=== PATIENT | male | born 1965 | race Caucasian/White ===

== ENCOUNTER 2021-10-18 15:57 | Inpatient (IN) | payer OTHER ==
[~2021-10-18] VITALS: Ht 175.3 cm; Wt 84.8 kg
[2021-10-18 16:01] VITALS: BP 178/112
--- NOTE | 2021-10-18 16:11 | NUR ---
Antelmo bernal in [facility] - 10/18/21 at 1612 by [email or web address] PT AMB TO BED 8.
--- NOTE | 2021-10-18 16:12 | NUR ---
PT AMB TO BED 10.
[2021-10-18] MEDS ORDERED: DICYCLOMINE HCL LIQUID 20 MG, ALUMINUM HYD/MAG/SIMETHICONE 30 ML, LIDOCAINE VISCOUS 2% ... PO ONE ×3 (16:40)
--- NOTE | 2021-10-18 16:45 | NUR ---
55 Y/O MALE BIB SELF C/O INTERMITTENT MID STERNAL "BURNING" CHEST PAIN RATED 5/10. PT STATES THE PAIN IMPROVED AFTER DRINKING WATER. PT DENIES FEVER OR CHILLS. LUNGS CTA. BED LOCKED IN LOWEST POSITION. PT PLACE ON MONITOR. PMH:DENIES MEDS: DENIES
[2021-10-18 17:07] LABS: BASOPHILS % (AUTO) 0.3 % (0.0-2.0); EOSINOPHILS # (AUTO) 0.1 K/uL (0-0.4); EOSINOPHILS % (AUTO) 1.1 % (0.0-4.0); HEMATOCRIT 35.9 % (36-52); HEMOGLOBIN 11.1 g/dL (12.0-18.0); LYMPHOCYTES % (AUTO) 8.6 % (20.5-51.1); MEAN CORPUSCULAR HEMOGLOBIN 22 pg (27-31); MEAN CORPUSCULAR HGB CONC 31 g/dL (33-37); MEAN CORPUSCULAR VOLUME 71.9 fL (80-94); MONOCYTES # (AUTO) 0.6 K/uL (0.8-1.0); MONOCYTES % (AUTO) 5.4 % (1.7-9.3); NEUTROPHILS # (AUTO) 10.1 K/uL (1.8-7.7); NEUTROPHILS % (AUTO) 84.6 % (42.2-75.2); PLATELET COUNT (AUTO) 345 K/uL (140-450); RED BLOOD CELL COUNT(AUTO) 4.99 MIL/uL (4.20-6.10); RED CELL DISTRIBUTION WIDTH 17.7 % (11.6-13.7)
[2021-10-18] MEDS ORDERED: ALUMINUM HYD/MAG/SIMETHICONE 30 ML UDC ONE (17:29)
[2021-10-18] MEDS ORDERED: DICYCLOMINE HCL LIQUID 10 MG/5 ML UDC ONE (17:29)
[2021-10-18 17:32] LABS: ALBUMIN 3.9 g/dL (3.4-5.0); ANION GAP 11.9 (8-16); ASPARTATE AMINOTRANSFERASE 144 U/L (15-37); CARBON DIOXIDE 24.9 mmol/L (21-32); CHLORIDE 100 mmol/L (98-107); CREATININE 0.7 mg/dL (0.6-1.3); GFR ARICAN-AMERICAN 149 mL/min (>90); GLUCOSE 106 mg/dL (74-106); POTASSIUM 3.8 mmol/L (3.5-5.1); SODIUM SERUM 133 mmol/L (136-145); TOTAL BILIRUBIN 0.2 mg/dL (0.0-1.0); UREA NITROGEN, BLOOD 13 mg/dL (7-18)
[2021-10-18] MEDS ORDERED: NITROGLYCERIN 0.4 MG TAB SL ONE (17:45)
[2021-10-18] MEDS ORDERED: ASPIRIN 325 MG TAB PO ONE (17:45)
[2021-10-18] MEDS ORDERED: CLOPIDOGREL 75 MG TAB PO ONE (17:45)
[2021-10-18] MEDS ORDERED: LOVENOX 1MG/KG Q12H SUBQ SCH (17:55)
--- NOTE | 2021-10-18 19:02 | NUR ---
MARCI LAMBERT WALKED TO LAB
--- NOTE | 2021-10-18 19:20 | NUR ---
Pt report given to AKILAH LENNON. Transfer of care at this time.
[2021-10-18] MEDS ORDERED: MAGNESIUM OXIDE 400 MG TAB PO PRN (21:05)
[2021-10-18] MEDS ORDERED: MORPHINE SULFATE 4 MG/ML SYR IVP PRN (21:05)
[2021-10-18] MEDS ORDERED: NITROGLYCERIN 0.4 MG TAB SL PRN (21:05)
[2021-10-18] MEDS ORDERED: KCL 20 MEQ/WATER INJ PREMIX 200 ML IV PRN (21:05)
[2021-10-18] MEDS ORDERED: ACETAMINOPHEN 325 MG TAB PO PRN (21:05)
[2021-10-18] MEDS ORDERED: ONDANSETRON 4 MG/2 ML VIAL IVP PRN (21:05)
[2021-10-18] MEDS ORDERED: POTASSIUM CHLORIDE 10 MEQ TABER PO PRN (21:05)
[2021-10-18] MEDS ORDERED: MAG SULF 2000 MG/WATER PREMIX 50 ML IV PRN (21:05)
--- NOTE | 2021-10-18 21:48 | NUR ---
Patient will be admitted to care of DR RODRIGUEZ. Admited to TELE. Will go to room 106B. Belongings list completed. Report to AKILAH LOUIS.
--- NOTE | 2021-10-18 21:50 | NUR ---
PATIENT WAS BROUGHT TO [facility] UNIT FROM ER VIA [place] AA[facility], AMBULATORY ON ROOM AIR. NO ACUTE DISTRESS NOTED. SKIN INTACT NO WOUND. ORIENTED TO ROOM, CALL LIGHT, STAFF. ALL SAFETY PRECAUTIONS ARE IN PLACE. MRSA SCREENING DONE. CALL LIGHT WITHIN REACH. WILL CONTINUE TO MONITOR PT.
--- NOTE | 2021-10-18 22:22 | NUR ---
BP-165/105 P-[address] RODRIGUEZ AWAITING FOR REPLY.
[2021-10-18] MEDS: HYDROcodone/APAP 5/325 MG 1 TAB TAB PO PRN (22:37)
--- NOTE | 2021-10-18 22:37 | NUR ---
PATIENT COMPLAINED OF MODERATE CHEST PAIN 4/10, MEDICATED.
[2021-10-19] VITALS: BP 168/110
[2021-10-19] MEDS ORDERED: ENOXAPARIN 80 MG/0.8 ML SYR SUBQ SCH (00:05)
[2021-10-19] MEDS ORDERED: METOPROLOL 50 MG TAB ONE (00:10)
[2021-10-19] MEDS ORDERED: SIMVASTATIN 20 MG TAB ONE (00:10)
[2021-10-19] MEDS ORDERED: CLONIDINE HYDROCHLORIDE 0.1 MG TAB PO PRN (00:20)
--- NOTE | 2021-10-19 02:25 | NUR ---
CHECKED PATIENT, RESTING COMFORTABLY IN BED. NO ACUTE DISTRESS. RESPIRATION EVEN UNLABORED. CALL LIGHT WITHIN REACH.
[2021-10-19 04:00] VITALS: BP 148/100
[2021-10-19 06:09] LABS: BASOPHILS % (AUTO) 0.3 % (0.0-2.0); EOSINOPHILS # (AUTO) 0.2 K/uL (0-0.4); EOSINOPHILS % (AUTO) 1.7 % (0.0-4.0); HEMATOCRIT 33.7 % (36-52); HEMOGLOBIN 10.7 g/dL (12.0-18.0); LYMPHOCYTES # (AUTO) 1.1 K/uL (2.0-11.5); LYMPHOCYTES % (AUTO) 9.6 % (20.5-51.1); MEAN CORPUSCULAR HEMOGLOBIN 22 pg (27-31); MEAN CORPUSCULAR HGB CONC 32 g/dL (33-37); MEAN CORPUSCULAR VOLUME 70.8 fL (80-94); MONOCYTES # (AUTO) 0.9 K/uL (0.8-1.0); MONOCYTES % (AUTO) 8.1 % (1.7-9.3); NEUTROPHILS # (AUTO) 9.1 K/uL (1.8-7.7); NEUTROPHILS % (AUTO) 80.3 % (42.2-75.2); PLATELET COUNT (AUTO) 328 K/uL (140-450); RED BLOOD CELL COUNT(AUTO) 4.76 MIL/uL (4.20-6.10); RED CELL DISTRIBUTION WIDTH 17.4 % (11.6-13.7); WHITE BLOOD COUNT (AUTO) 11.3 K/uL (4.8-10.8)
[2021-10-19 06:43] LABS: ALBUMIN 3.6 g/dL (3.4-5.0); ANION GAP 11.8 (8-16); CREATININE 0.7 mg/dL (0.6-1.3); POTASSIUM 3.8 mmol/L (3.5-5.1); TOTAL BILIRUBIN 0.5 mg/dL (0.0-1.0)
--- NOTE | 2021-10-19 07:26 | NUR ---
ENDORSED PATIENT TO AM NURSE FOR CONTINUITY OF CARE. PT IS STABLE.
[2021-10-19 08:00] VITALS: BP 148/101
--- NOTE | 2021-10-19 08:11 | NUR ---
RECEIVE ENDORSEMENT FROM PM SHIFT NURSE WHILE PATIENT IS REST IN BED, PIV LAC 20G SALINE LOCK. PATIENT HAS NSTEMI RECENTLY
--- NOTE | 2021-10-19 08:32 | NUR ---
PATIENT HAS BEEN SCREENED AND CATEGORIZED LOW NUTRITION RISK. PATIENT WILL BE SEEN WITHIN 7 DAYS OF ADMISSION. 10/25/[address]
[2021-10-19] MEDS ORDERED: METOPROLOL 50 MG TAB PO SCH (09:00)
[2021-10-19] MEDS ORDERED: LOVENOX 1MG/KG Q12H SUBQ SCH (09:00)
[2021-10-19] MEDS: ATORVASTATIN 80 MG TAB PO SCH (10:01)
[2021-10-19] MEDS: DOCUSATE SODIUM 100 MG GELCAP PO SCH (10:01)
[2021-10-19] MEDS: ENOXAPARIN 80 MG/0.8 ML SYR SUBQ SCH ×2 (10:04→20:50)
--- NOTE | 2021-10-19 10:56 | NUR ---
RECEIVE CALL FROM ALISON ([phone]) REGARDING TO PATIENT'S DISCHARGE PLAN. WILL F/U Addendum: 10/19/21 at 1614 by Charlene Mendez RN KSENIA DODSON INFORM NURSE THAT PATIENT NEED TO BE NPO FROM 10/20/2021 TO 10/21/2021 NIGHT. WOMEN'S BASKETBALL COACH SCHEDULE IN SUNDAY (10/21/2021), AND INSPECTION MANAGER TIME IS 0900. WILL CONTINUE TO MONITOR.
--- NOTE | 2021-10-19 11:32 | NUR ---
DC PLANNIN YRS OLD FEMALE PATIENT WAS ADMITTED FROM HOME WITH A DX OF NSTEMI. PATIENT HAS NO MEDICAL HISTORY. CXR NORMAL. RAPID COVID TEST NEGATIVE. ADMINISTERED HOME MEDS. CONSULTED WITH CARDIO DR NICK. DC PLAN TO GO HOME WHEN STABLE. CM TO FOLLOW Addendum: 10/19/21 at 1453 by Elda Strickland RN DC PLANNING: DR NICK BASKET FILLER ORDERED PATIENT NEEDS CARDIAC CATH, NEEDS TO BE TRANSFERRED TO HIGHER LEVEL OF CARE. CALLED [facility] [phone] SPOKE WITH CM NAME JAGDEEP STATED SINCE HE IS IN OUT OF AREA THE HEALTH PLAN IS THE ONE WHO IS RESPONSIBLE. CALLED [facility] [phone] SPOKE WITH TRACY UPDATED ALL CLINICALS REF # [id number] PER TRACY WILL SUBMIT TO THE WOOD CAULKER AND ONCE SHE REVIEW IT WILL CALL BACK. FAXED THE URGENT REQUEST TO [phone]. CALLED [facility] C[facility]OM[facility] EXPERIENCE SPECIALIST SPOKE WITH RAFA SHETTY ONCE SHE ARRANGE WILL CALL BACK CM. CM TO FOLLOW Addendum: 10/19/21 at 1558 by Elda Strickland RN DC PLANNING: PER DR NICK CARDIAC CATH SCHEDULED AT SATURDAY 10/21 AT 2 PM. CALLED [facility] NEUROPSYCHOLOGIST SPOKE WITH FLAKITA SHETTY PATIENT CAN BE TRANSFERRED ON 10/21 AT 0900AM. ARRANGED TRANSPORT WITH [facility] SCHEDULED THE PICK UPTIME [address] THE RETURNING WILL CALL. NOTIFIED PATIENT, CHARGE NURSE JOSE ANTONIO ISBELL.
[2021-10-19 12:00] VITALS: BP 167/102
[2021-10-19] MEDS: lisinopriL 5 MG TAB PO SCH (12:10)
[2021-10-19] MEDS ORDERED: hydrALAZINE 20 MG/ML VIAL IVP PRN (12:10)
[2021-10-19] MEDS ORDERED: ECOTRIN 81 MG TABEC PO SCH (12:30)
[2021-10-19 16:00] VITALS: BP 135/91
[2021-10-19 16:03] LABS: BARBITURATE, URINE NEGATIVE ng/ml (NEG <=200); BENZODIAZEPINE, URINE NEGATIVE ng/mL (NEG <=200); CANNABINOID, URINE NEGATIVE ng/mL (NEG <=50); COCAINE, URINE NEGATIVE ng/mL (NEG <=300); OPIATE, URINE POSITIVE ng/mL (NEG <=2000); PHENCYCLIDINE SCREEN,URINE NEGATIVE ng/mL (NEG <=25)
--- NOTE | 2021-10-19 19:30 | NUR ---
RECEIVED REPORT FROM DAY SHIFT NURSE. PATIENT WAS A&OX4, PATIENT WAS SITTING UP, ON ROOM AIR WITH NO SOB AND BREATHING APPEARED TO BE NORMAL WITH SYMMETRICAL RISE AND FALL OF CHEST, SEEMED TO BE IN GOOD SPIRITS. SKIN WAS INTACT, PATIENT HAS 20G IN L AC, SALINE LOCK. NO COMPLAINTS OF PAIN. AMBULATORY, ALL SAFETY PRECAUTIONS IN PLACE. CALL LIGHT WITHIN REACH AND BED IS IN LOWEST POSITION. WILL CONTINUE TO MONITOR.
--- NOTE | 2021-10-19 19:45 | NUR ---
ENDORSE PT TO PM SHIFT NURSE WHILE PATIENT IS STANDING NEXT TO BED, PIV LAC 20G SALINE LOCK. INFORM NURSE THAT PATIENT SCHEDULE TO HAVE OVERLOCKER THIS SUNDAY. MAKE SURE TO INFORM NEXT SHIFT NURSE THAT PATIENT SUPPOSE TO START NPO FROM MIDDLE NIGHT BEFORE PROCEDURE.
[2021-10-19] MEDS: carvediloL 12.5 MG TAB PO SCH (20:47)
--- NOTE | 2021-10-19 20:47 | NUR ---
ALL SCHEDULED MEDICATIONS FOR 2100 GIVEN. PATIENT TOLERATED WELL.
[2021-10-19] MEDS ORDERED: SIMVASTATIN 20 MG TAB PO SCH (21:00)
[2021-10-19 22:00] VITALS: BP 115/77
--- NOTE | 2021-10-20 00:49 | NUR ---
LOOKED IN ON PATIENT. PATIENT WAS SLEEPING COMFORTABLY AND BREATHING WAS NORMAL WITH SYMMETRICAL RISE AND FALL OF CHEST. PATIENT IS NOT RECEIVING FLUIDS, AND NO IV IS ATTACHED TO PATIENT. WILL CONTINUE TO MONITOR PATIENT.
--- NOTE | 2021-10-20 02:50 | NUR ---
LOOKED IN ON PATIENT. PATIENT WAS SLEEPING COMFORTABLY. THERE IS NO IV RUNNING FOR PATIENT. PATIENT WAS BREATHING NORMALLY WITH SYMMETRICAL RISE AND FALL OF CHEST. WILL CONTINUE TO MONITOR PATIENT.
[2021-10-20 04:00] VITALS: BP 111/75
[2021-10-20 06:16] LABS: BASOPHILS # (AUTO) 0.1 K/uL (0.00-0.22); BASOPHILS % (AUTO) 0.5 % (0.0-2.0); EOSINOPHILS # (AUTO) 0.1 K/uL (0-0.4); EOSINOPHILS % (AUTO) 0.6 % (0.0-4.0); HEMATOCRIT 33.6 % (36-52); HEMOGLOBIN 10.7 g/dL (12.0-18.0); LYMPHOCYTES # (AUTO) 1.8 K/uL (2.0-11.5); LYMPHOCYTES % (AUTO) 14.9 % (20.5-51.1); MEAN CORPUSCULAR HEMOGLOBIN 22 pg (27-31); MEAN CORPUSCULAR HGB CONC 32 g/dL (33-37); MEAN CORPUSCULAR VOLUME 70.8 fL (80-94); MONOCYTES # (AUTO) 1.3 K/uL (0.8-1.0); MONOCYTES % (AUTO) 11.1 % (1.7-9.3); NEUTROPHILS # (AUTO) 8.7 K/uL (1.8-7.7); NEUTROPHILS % (AUTO) 72.9 % (42.2-75.2); PLATELET COUNT (AUTO) 308 K/uL (140-450); RED BLOOD CELL COUNT(AUTO) 4.75 MIL/uL (4.20-6.10); RED CELL DISTRIBUTION WIDTH 17.4 % (11.6-13.7)
[2021-10-20 06:31] LABS: ALBUMIN 3.3 g/dL (3.4-5.0); ANION GAP 11.3 (8-16); CARBON DIOXIDE 24.5 mmol/L (21-32); CREATININE 0.9 mg/dL (0.6-1.3); MAGNESIUM 2.2 mg/dL (1.8-2.4); POTASSIUM 3.8 mmol/L (3.5-5.1); TOTAL BILIRUBIN 0.6 mg/dL (0.0-1.0)
[2021-10-20 06:52] LABS: CHOL/HDL RATIO 3.2 (1-4.5)
--- NOTE | 2021-10-20 07:28 | NUR ---
ENDORSED TO MORNING SHIFT NURSE FOR CONTINUITY OF CARE. PATIENT IS STABLE.
--- NOTE | 2021-10-20 07:30 | NUR ---
RECEIVED REPORT FROM MAKING DEPARTMENT PREPARER FOR CONTINUITY OF CARE. PATIENT IS ALERT AWAKE ORIENTED X4, NOT IN ANY DISTRESS NOTED. DENIES CHEST PAIN. CALL LIGHT WITHIN REACH. ON MONITOR SHOWS SR. WITH HEPLOCK ON THE LEFT AC G 20 DRY AND INTACT. NEEDS ATTENDED. WILL CONTINUE TO MONITOR.
[2021-10-20 08:00] VITALS: BP 116/78
[2021-10-20] MEDS: DOCUSATE SODIUM 100 MG GELCAP PO SCH (08:47)
[2021-10-20] MEDS: ATORVASTATIN 80 MG TAB PO SCH (08:47)
[2021-10-20] MEDS: ECOTRIN 81 MG TABEC PO SCH (08:47)
[2021-10-20] MEDS: lisinopriL 5 MG TAB PO SCH (08:47)
[2021-10-20] MEDS: carvediloL 12.5 MG TAB PO SCH ×2 (08:48→20:27)
[2021-10-20] MEDS: ENOXAPARIN 80 MG/0.8 ML SYR SUBQ SCH ×2 (08:51→20:27)
--- NOTE | 2021-10-20 11:06 | NUR ---
PATIENT RESTING IN BED, DENIES CHEST PAIN. WILL CONTINUE TO MONITOR.
[2021-10-20 12:00] VITALS: BP 98/58
[2021-10-20 16:00] VITALS: BP 97/63
--- NOTE | 2021-10-20 17:33 | NUR ---
DISCHARGE PLANNING PATIENT IS A 55 YEAR OLD MALE ADMITTED ON 10/18/2021 TO THE [facility] DUE TO CHEST PAIN OF 2 DAYS DURATION. PATIENT HAS NO SIGNIFICANT MEDICAL HISTORY. (PATIENT IS CITIZEN OF [place] SPE[place] SW MET WITH PATIENT AT BEDSIDE TO DISCUSS AND GATHER PATIENT'S COLLATERAL INFORMATION. PATIENT REPORTED LIVING AT HOME WITH HIS COUSIN KURT [phone]. PER PATIENT HE HAS GOOD FAMILY SUPPORT, BUT HIS COUSIN IS HIS EMERGENCY AND MEDICAL DECISION MAKER. PATIENT STATED NOT HAVING ADVANCE DIRECTIVES AND WAS INTERESTED ON GETTING INF. FORMS PROVIDED BY SW. PATIENT REPORTS BEEN ACTIVE AND INDEPENDENT AT HOME BEFORE HOSPITALIZATION. PATIENT ALSO REPORTED NOT HAVING OR NEEDING DME AT HOME AND NOT HAVING ANY ISSUES GETTING OR TAKING ANY MEDICATIONS PRESCRIBED BY HIS DOCTOR. PATIENT STATED THAT HE GETS HIS MEDICATIONS FROM THE [facility] NEAR HIS HOME IN [facility]. SW EXPLAINED TO PATIENT THE NEED TO FOLLOW UP WITH AN APPOINTMENT WITHIN 5-7 DAYS WITH HIS PCP ELISEO CARUSO AFTER DC, PATIENT AGREED AND STATED THAT HE WILL BE MAKING HIS OWN FOLLOW UP APPOINTMENT; WITH PRIMARY DOCTOR AFTER HE IS DISCHARGED FROM [facility]. PATIENT STATED THAT HIS COUSIN KURT WILL BE ASSISTING HIM WITH TRANSPORTATION BACK HOME WHEN HE IS READY FOR DISCHARGE. SW WILL FOLLOW UP WITH PATIENT NEEDED.
--- NOTE | 2021-10-20 18:20 | NUR ---
PATIENT RESTING IN BED, DENIES CHEST PAIN. WILL ENDORSE TO THE BAGGING SALVAGER FOR CONTINUITY OF CARE.
[2021-10-20 20:00] VITALS: BP 103/69
--- NOTE | 2021-10-20 20:36 | NUR ---
BP CHECKED 100/65, HR-72, DUE LOVENOX GIVEN, ALL NEEDS ATTENDED.
--- NOTE | 2021-10-20 23:20 | NUR ---
SEEN PT AWAKE WATCHING TV, DENIES ANY PAIN, NO SOB NOTED REINFORCED NPO AFTER MIDNIGHT FOR CARDIAC CATH TOMORROW, VERBALIZED UNDERSTANDING, MONITORED CLOSELY.
[2021-10-21] VITALS: BP 105/73
[2021-10-21 04:00] VITALS: BP 110/67
--- NOTE | 2021-10-21 04:00 | NUR ---
PT SLEEPING, EASILY AROUSABLE, DENIES ANY PAIN, NO SOB NOTED, MAINTAINED ON NPO, VITAL SIGNS STABLE, CONTINUE TO MONITOR CLOSELY.
--- NOTE | 2021-10-21 07:21 | NUR ---
RECEIVED REPORT FROM PLASTIC MOULD MAKER NURSE FOR CONTINUITY OF CARE. PATIENT ASLEEP NO DISTRESS. IV SITE ON LEFT AC LUIS ANGEL 20 SALINE LOCK. RESPIRATION EVEN AND NOT LABORED ON ROOM AIR. ALL SAFETY MEASURE IN PLACE.
[2021-10-21 07:26] LABS: BASOPHILS % (AUTO) 0.5 % (0.0-2.0); EOSINOPHILS # (AUTO) 0.2 K/uL (0-0.4); EOSINOPHILS % (AUTO) 1.7 % (0.0-4.0); HEMOGLOBIN 9.8 g/dL (12.0-18.0); LYMPHOCYTES # (AUTO) 1.7 K/uL (2.0-11.5); LYMPHOCYTES % (AUTO) 16.5 % (20.5-51.1); MEAN CORPUSCULAR HEMOGLOBIN 23 pg (27-31); MEAN CORPUSCULAR HGB CONC 32 g/dL (33-37); MEAN CORPUSCULAR VOLUME 71.6 fL (80-94); MONOCYTES # (AUTO) 1.5 K/uL (0.8-1.0); MONOCYTES % (AUTO) 14.8 % (1.7-9.3); NEUTROPHILS # (AUTO) 6.9 K/uL (1.8-7.7); NEUTROPHILS % (AUTO) 66.5 % (42.2-75.2); PLATELET COUNT (AUTO) 284 K/uL (140-450); RED BLOOD CELL COUNT(AUTO) 4.33 MIL/uL (4.20-6.10); RED CELL DISTRIBUTION WIDTH 17.8 % (11.6-13.7); WHITE BLOOD COUNT (AUTO) 10.4 K/uL (4.8-10.8)
[2021-10-21 07:28] LABS: ALBUMIN 3.1 g/dL (3.4-5.0); ANION GAP 11.4 (8-16); CARBON DIOXIDE 25.4 mmol/L (21-32); CREATININE 1.2 mg/dL (0.6-1.3); MAGNESIUM 2.3 mg/dL (1.8-2.4); POTASSIUM 3.8 mmol/L (3.5-5.1); TOTAL BILIRUBIN 0.3 mg/dL (0.0-1.0)
[2021-10-21 08:00] VITALS: BP 104/70
--- NOTE | 2021-10-21 08:00 | NUR ---
Patient's Plan of Care was discussed and reviewed with BOBBIN DUMPER: CYNTHIA COYNE
[2021-10-21 08:23] LABS: PROTHROMBIN TIME 9.8 secs (10.8-13.4)
--- NOTE | 2021-10-21 08:40 | NUR ---
PATIENT ALERT ORIENTED DENIES CHEST PAIN OR ANY DISCOMFORT, ON NPO DIRECTOR SOCIAL ON A GURNEY TO GO TO [facility] FOR VOLTMETER OPERATOR. SEND FACE SHEET AND LABS REPORT NEEDED FOR PROCEDURE. NO MEDICATION GIVEN TO PATIENT. TRIED TO GIVE REPORT BUT NURSE GET MY NUMBER AND WILL CALL ME AND GET REPORT.
[2021-10-21] MEDS: carvediloL 12.5 MG TAB PO SCH ×2 (09:00→22:38)
[2021-10-21] MEDS: ENOXAPARIN 80 MG/0.8 ML SYR SUBQ SCH ×2 (09:00→22:30)
[2021-10-21] MEDS: DOCUSATE SODIUM 100 MG GELCAP PO SCH (09:00)
[2021-10-21] MEDS: ATORVASTATIN 80 MG TAB PO SCH (09:00)
[2021-10-21] MEDS: lisinopriL 5 MG TAB PO SCH (09:00)
[2021-10-21] MEDS: ECOTRIN 81 MG TABEC PO SCH (09:00)
--- NOTE | 2021-10-21 09:00 | NUR ---
NURSE LOUIS CALLED AND I GAVE REPORT FOR PATIENT CONTINUITY OF CARE.
--- NOTE | 2021-10-21 11:50 | NUR ---
PATIENT CALLED ME THAT HIS IS READY TO GO HOME GIVEN DISCHARGE PACKET WITH INSTRUCTION HE CLAIM HE UNDERSTAND. HE SAID HIS SON WILL BE HERE SOON. Addendum: 10/21/21 at 1328 by Jessica Johnson LVN WRONG PATIENT
--- NOTE | 2021-10-21 12:30 | NUR ---
PATIENT TRYING TO GO OUT WHEN I ASK IF THE WOOL GRADER FOR HIM IS HERE ALREADY HE SAID HIS PHONE NOT WORKING SO I CALLED THE GENERAL ACCOUNTANT WITH THE HELP OF STUDENT INTERPRETING MOTHER SAID SHE WILL BE HERE IN 30 MINUTE. I INFORM PATIENT AND NOTED PATIENT PULLED HIS IV Addendum: 10/21/21 at 1329 by Jessica Johnson LVN WRONG PATIENT
--- NOTE | 2021-10-21 13:00 | NUR ---
PATIENT TRIED TO GET OUT SAYING THAT HIS FAMILY IS OUTSIDE. ENCOURAGED TO STAY AND JUST WAIT WE WILL DISCHARGE HIM SOON THE FAMILY TO PICK HIM UP WILL BE HERE. Addendum: 10/21/21 at 1330 by Jessica Johnson LVN WRONG PATIENT
--- NOTE | 2021-10-21 13:15 | NUR ---
PATIENT TOOK ALL HIS BELONGING, NAME BAND REMOVED. DIRECTOR DATA PROCESSING BY SON EXPLAIN TO THE SON RESIDENT CONDITION, MEDICATION AND NEED OF DOCTORS APPOINTMENT. WHEELED PATIENT TO THEIR PRIVATE VEHICLE. PATIENT ON STABLE CONDITION. Addendum: 10/21/21 at 1332 by Jessica Johnson LVN WRONG PATIENT
--- NOTE | 2021-10-21 18:54 | NUR ---
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
--- NOTE | 2021-10-21 19:15 | NUR ---
PT IS OUT OF UNIT IN [facility] FOR CARDIAC CATH.
[2021-10-21 22:15] VITALS: BP 143/94
--- NOTE | 2021-10-21 22:20 | NUR ---
PT CAME BACK FROM [facility] IN STABLE CONDITION.APPLIED TELE AND SHOWING SR.SLX2 PATENT.CALL LIGHT IN REACH.NO C/O ,PAIN .HAS ARM BOARD ON RT.ARM AND HAS TO STAY THERE UNTIL 0352 PM ON 10/22/21.DO NOT REMOVE THAT.AO=009/94 COREG GIVEN .DID NOT GIVE LOVENOX.WILL CONT.MONITORING.
[2021-10-22] VITALS: BP 104/72
[2021-10-22] MEDS: HYDROcodone/APAP 5/325 MG 1 TAB TAB PO PRN (02:07)
--- NOTE | 2021-10-22 02:31 | NUR ---
HR IS SR.HAD C/O PAIN ON RT.ARM MEDICATED W/NORCO.WILL REASSESS LATER.NO C/O CHEST PAIN OR SOB NOW.
[2021-10-22 04:00] VITALS: BP 109/78
--- NOTE | 2021-10-22 04:33 | NUR ---
NO C/O PAIN NOW.SLEEPING.HR IS SR.
--- NOTE | 2021-10-22 07:22 | NUR ---
REPORT GIVEN TO AM RN IN STABLE CONDITION.
--- NOTE | 2021-10-22 07:23 | NUR ---
RECEIVED BEDSIDE REPORT FROM CONTROL SPECIALIST NURSE FOR CONTINUOUS OF CARE. PT RESTING, NO DISTRESS NOTED, IV TO LEFT FA 20G, R FA 22G, PATENT INTACT, SL. PT ON ROOM AIR, NO SOB NOTED. DENIES ANY PAIN AT THIS MOMENT, INITIAL ASSESSMENT DONE, ALL SAFETY PRECAUTION MET, CALL LIGHT WITHIN REACH, WILL CONTINUE TO MONITOR.
[2021-10-22 07:41] LABS: BASOPHILS % (AUTO) 0.3 % (0.0-2.0); EOSINOPHILS # (AUTO) 0.1 K/uL (0-0.4); EOSINOPHILS % (AUTO) 1.2 % (0.0-4.0); HEMATOCRIT 29.4 % (36-52); HEMOGLOBIN 9.4 g/dL (12.0-18.0); LYMPHOCYTES # (AUTO) 1.5 K/uL (2.0-11.5); LYMPHOCYTES % (AUTO) 16.4 % (20.5-51.1); MEAN CORPUSCULAR HEMOGLOBIN 23 pg (27-31); MEAN CORPUSCULAR HGB CONC 32 g/dL (33-37); MEAN CORPUSCULAR VOLUME 71.9 fL (80-94); MONOCYTES # (AUTO) 1.2 K/uL (0.8-1.0); NEUTROPHILS # (AUTO) 6.2 K/uL (1.8-7.7); NEUTROPHILS % (AUTO) 69.1 % (42.2-75.2); PLATELET COUNT (AUTO) 287 K/uL (140-450); RED CELL DISTRIBUTION WIDTH 17.3 % (11.6-13.7); WHITE BLOOD COUNT (AUTO) 8.9 K/uL (4.8-10.8)
[2021-10-22 07:51] LABS: ALBUMIN 2.9 g/dL (3.4-5.0); ANION GAP 10.3 (8-16); CARBON DIOXIDE 23.8 mmol/L (21-32); CREATININE 0.9 mg/dL (0.6-1.3); MAGNESIUM 2.3 mg/dL (1.8-2.4); POTASSIUM 4.1 mmol/L (3.5-5.1); TOTAL BILIRUBIN 0.4 mg/dL (0.0-1.0)
[2021-10-22 08:00] VITALS: BP 103/69
[2021-10-22] MEDS: DOCUSATE SODIUM 100 MG GELCAP PO SCH (08:59)
[2021-10-22] MEDS: ATORVASTATIN 80 MG TAB PO SCH (08:59)
[2021-10-22] MEDS: ECOTRIN 81 MG TABEC PO SCH (08:59)
--- NOTE | 2021-10-22 08:59 | NUR ---
DUE MEDICATION ADMINISTERED, PT TOLERATED WELL, NO DISTRESS NOTED, WILL CONTINUE TO MONITOR. PT BP TRENDING LOW BP MEDICATIONS HELD, WILL NOTIFY
[2021-10-22] MEDS: lisinopriL 5 MG TAB PO SCH (09:00)
[2021-10-22] MEDS: carvediloL 12.5 MG TAB PO SCH (09:00)
[2021-10-22] MEDS: ENOXAPARIN 80 MG/0.8 ML SYR SUBQ SCH (09:02)
[2021-10-22 12:00] VITALS: BP 98/65
--- NOTE | 2021-10-22 12:30 | NUR ---
DR NICK AT BEDSIDE, ENDORSED TO DR REGARDING PT BP, AWARE. WILL CONTINUE TO MONITOR.
[2021-10-22] MEDS ORDERED: CARV12.52 PO (13:44)
[2021-10-22] MEDS ORDERED: TICA90TA PO (13:44)
[2021-10-22] MEDS ORDERED: LIP80 PO (13:44)
[2021-10-22] MEDS ORDERED: ASPI-1856 PO (13:44)
[2021-10-22] MEDS ORDERED: LISI5TAB24 PO (13:44)
[2021-10-22] MEDS ORDERED: NITR0.4T1 SL (13:44)
[2021-10-22] MEDS ORDERED: CARV3.12 PO (13:46)
[2021-10-22 14:36] VITALS: BP 98/65
--- NOTE | 2021-10-22 14:50 | NUR ---
DISCHARGE PAPER MERARY, PT STATED UNDERSTANDING, ALL QUESTIONS ANSWERED, IV TAKEN OUT, CATH INTACT.
--- NOTE | 2021-10-22 15:25 | NUR ---
PT LEFT IN STABLE CONDITION.
== END 2021-10-22 15:25 | disposition home or self-care (01) | DRG 282 ==
LOC: MED 15:57 → MMU 21:01 → MTU 21:45
PROVIDERS: ADMIT Internal Medicine; ATTEND Internal Medicine
DX: I21.4 Non-ST elevation (NSTEMI) myocardial infarction (principal); E78.5 Hyperlipidemia, unspecified; D50.9 Iron deficiency anemia, unspecified; Z20.822 Contact with and (suspected) exposure to COVID-19; Z82.49 Family history of ischemic heart disease and other diseases of the circulatory system; Z72.0 Tobacco use
CPT/HCPCS: 36415; 71045; 80053; 80305; 83036; 83540; 83735; 83880; 84484; 85025; 85610; 85730; 87081; 93005; 99291; 99292; J1650; J2270; Q0092